=== PATIENT | male | born 1970 | race African-American/Black ===

== ENCOUNTER 2020-08-30 09:15 | Outpatient (RCR) | payer BC, SELFPAY ==
[2020-08-06 11:18] VITALS: BMI 30.7
== END 2020-08-30 12:18 | disposition home or self-care (01) ==
LOC: ANHDMC 09:15
PROVIDERS: PCP Family Medicine; Visit Provider Family Medicine
DX: R73.03 Prediabetes (principal); Z71.3 Dietary counseling and surveillance; Z71.89 Other specified counseling
CPT/HCPCS: 97802; G0108

== ENCOUNTER 2023-05-08 07:47 | Outpatient (CLI) | payer BC, SELFPAY ==
--- NOTE | ~2023-05-08 | XR_ITS ---
XR lumbar spine 2-3V DATE: 05/08/2023 08:07 INDICATION: Low back pain with extension into unspecified leg TECHNIQUE: AP, lateral, coned lateral lumbosacral views COMPARISON: None FINDINGS: Mild thoracolumbar levoscoliosis. There is mild degenerative spurring of the lumbar vertebrae. Lumbar and lumbosacral interspaces are w ell preserved. There is normal alignment. No spondylolisthesis. No fracture or bone destruction is detected. Include d lower thoracic and lumbar pedicles are intact. The sacroiliac joints are intact. IMPRESSION: Mild levoscoliosis Mild degenerative spurring Reviewed, dictated and finalized at location A.
== END 2023-05-08 07:48 | disposition home or self-care (01) ==
PROVIDERS: PCP Family Medicine; Visit Provider Nurse Practitioner Family
DX: M46.06 Spinal enthesopathy, lumbar region (principal); M41.85 Other forms of scoliosis, thoracolumbar region
CPT/HCPCS: 72100